=== PATIENT | male | born 1990 ===

== ENCOUNTER 2018-07-29 13:07 | Emergency (ER) | payer MEDICAID ==
[~2018-07-29] VITALS: Ht 188 cm; Wt 127.0 kg
[2018-07-29 14:27] VITALS: BP 154/109
[2018-07-29] MEDS: KETOROLAC TROMETH 60MG/2ML VIAL IM ONE (15:47)
[2018-07-29] MEDS: METHOCARBAMOL 500 MG TAB PO ONE (15:48)
== END 2018-07-29 16:26 | disposition home or self-care (01) ==
LOC: ER 13:07
DX: S32.019A Unspecified fracture of first lumbar vertebra, initial encounter for closed fracture (principal); W34.00XA Accidental discharge from unspecified firearms or gun, initial encounter; Y93.89 Activity, other specified; Y92.89 Other specified places as the place of occurrence of the external cause; Y99.8 Other external cause status
CPT/HCPCS: 72100; 96372; 99284; J1885